=== PATIENT | female | born 1940 | race Caucasian/White ===

== ENCOUNTER 2019-07-03 17:08 | Inpatient (IN) | payer MEDICARE ==
[~2019-07-03] VITALS: Ht 167.6 cm; Wt 97.2 kg
[2019-07-03 17:08] VITALS: BP 180/125
[~2019-07-03 17:08] MED LIST: AZO URINARY P97.5 MG PO; CIPRO500 MG PO; CIPROFLOXACIN500 MG PO; XANAX0.5 MG PO; ZOFRAN4 MG PO
[2019-07-03 17:17] VITALS: BP 170/92
--- NOTE | 2019-07-03 18:15 | NUR ---
Pt to xray at this time.
[2019-07-03 18:36] VITALS: BP 164/90
--- NOTE | 2019-07-03 18:39 | NUR ---
[facility] TO TRANSPORT PATIENT. ETA UNKNOWN
--- NOTE | 2019-07-03 18:54 | NUR ---
Pt states pain is 9/10 at this time in right hip and pt medicated for pain at this time.
--- NOTE | 2019-07-03 19:12 | NUR ---
Report to Herrera nagel
[2019-07-03 20:00] VITALS: BP 157/83
--- NOTE | 2019-07-03 20:53 | NUR ---
PATIENT IS UNABLE TO WALK AT THIS TIME. THE PATIENT STILL STATES THAT SHE IS IN MODERATE PAIN. PATIENT WITH NO OTHER COMPLAINTS.
[2019-07-03 22:00] VITALS: BP 140/76
[2019-07-04] VITALS: BP 145/90; BP 174/81
--- NOTE | 2019-07-04 | NUR ---
Time: 0000 A 79 year old FEMALE admitted to 5E under services of CHER LUEVANO MD. Pt. arrived via stretcher from ER. Chief complaint: CAME IN AFTER FALLING AT HOME. HEBERT GARZA
[2019-07-04] MEDS ORDERED: ENALAPRIL10 MG PO (00:14)
[2019-07-04] MEDS ORDERED: MULTI-VITAMIN1 EACH PO (00:18)
--- NOTE | 2019-07-04 00:45 | NUR ---
DR TAM CALLED . ADMISSION ORDERS RECEIVED.
--- NOTE | 2019-07-04 03:59 | NUR ---
NORCO GIVEN PER PRN ORDER FOR C/O BACK PAIN. RATED PAIN A 9/10 WITH 10 BEING THE WORST. SEE EMAR.REINFORCED USE OF CALL LIGHT.
[2019-07-04 04:00] VITALS: BP 174/81
--- NOTE | 2019-07-04 05:56 | NUR ---
PATIENT REFUSING PO PROTONIX . STATED LAST TIME SHE TOOK IT IT MADE HER VERY SICK.
[2019-07-04 06:14] LABS: BASO # 0.1 10*3/uL (0.0-0.1); BASO % 0.9 % (0.0-1.0); EOS # 0.1 10*3/uL (0.0-0.4); EOS % 1.1 % (1.0-4.0); HEMATOCRIT 41.9 % (37.0-47.0); HEMOGLOBIN 13.5 g/dl (12.0-16.0); LYMPH # 1.3 10*3/uL (1.3-4.4); MEAN CELL VOLUME 89.5 fl (81.0-99.0); MEAN CORPUSCULAR HGB 28.8 pg (27.0-31.0); MEAN CORPUSCULAR HGB CONC 32.2 g/dl (33.0-37.0); MEAN PLATELET VOLUME 9.9 fl (9.6-12.3); MONO # 0.9 10*3/uL (0.1-1.0); MONO % 13.4 % (3.0-9.0); NEUT # 4.6 10*3/uL (2.3-7.9); NEUT % 65.5 % (47.0-73.0); PLATELET COUNT AUTOMATED 158 10*3/uL (130-400); RED BLOOD COUNT 4.68 10*6/uL (4.10-5.10); RED CELL DISTRI WIDTH 13.8 % (0-14.5)
[2019-07-04 06:31] LABS: CREATININE 1.53 mg/dL (0.55-1.02); POTASSIUM 3.9 mmol/L (3.5-5.1)
[2019-07-04 08:00] VITALS: BP 113/81
--- NOTE | 2019-07-04 08:47 | NUR ---
Wool Shearer in to see patient. She is currently not in her room. Will follow up at a later time.
--- NOTE | 2019-07-04 09:36 | NUR ---
MEDICATED WITH PRN PO PERCOCET FOR BACK PAIN, ALSO STARTED SCHEDULED ROBAXIN AT THIS TIME, K-PAD AND LIDODERM PATCH TO RIGHT SIDE OF LOWER BACK APPLIED.
--- NOTE | 2019-07-04 11:09 | NUR ---
PRN PO PERCOCET SOMEWHAT EFFECTIVE IF LYING STILL, PER PATIENT.
--- NOTE | 2019-07-04 11:18 | NUR ---
Rfid Strategist in to talk to patient. Patient states lives at home alone with her family checking in on her. There are 0 steps in the home. Physician: Dr. Edmar Patten Pharmacy: [facility] Home health services: [facility] if needed Patient's level of ADLs: INDEPENDENT Patient has working utilities: yes DME: none Follow-up physician's appointment after d/c: she prefers to make her own follow up appt after discharge Does patient want to access PORTAL?: no Discharge plan discussed with patient. She lives at home alone with family checking in on her. She is normally independent in her ADLs and ambulation. She states that lady doctor came in this morning and told me my back is fractured. Discussed short term rehab and the facilities in the [place] area as she lives in [place]. She would like to think about it. She states she really just wants to go home. Discussed home health care services and she is agreeable. When provided with a list of agencies she chose [facility]. Discussed she can decide better after she works with therapy to see how she is mobile she is going to be and she agreed. Discharge plan undecided at this time. She states her son can provide transportation on discharge. ANGEL LUIS KENYON
[2019-07-04 12:00] VITALS: BP 174/81
--- NOTE | 2019-07-04 15:55 | NUR ---
MEDICATED WITH PRN PO PERCOCET FOR C/O BACK PAIN.
[2019-07-04 16:00] VITALS: BP 146/80
--- NOTE | 2019-07-04 18:11 | NUR ---
PATIENT CALLING OUT FOR HELP, HAVING SOME CONFUSION ABOUT HER FAMILY NOT BEING HERE. HER SON AND GRANDSON LEFT 1-2 HOURS AGO, PATIENT HAS NOT BEEN SLEEPING, BUT SHE STATES THEY WERE JUST HERE AND SHOULD STILL BE HERE.
--- NOTE | 2019-07-04 18:44 | NUR ---
PATIENT TURNED SIDE TO SIDE FOR INCONTINENCE CARE, STATES HAVING LESS PAIN THAN WHEN SHE TRIED TO TURN EARLIER.
--- NOTE | 2019-07-04 20:39 | NUR ---
PT CURRENTLY LYING IN BED AT THIS TIME ON BACK. STATES THAT PAIN HAS IMPROVED THROUGHOUT THE DAY BUT DOES NOT WANT REPOSITIONED AT THIS TIME. PT AGREEABLE TO ALLOWING CORRECT BODY ALIGNMENT AT THIS TIME PT'S LEGS WERE HANGING OVER EDGE OF BED. 0 DISTRESS NOTED. CALL LIGHT WITHIN REACH.
[2019-07-05] VITALS: BP 131/61
[2019-07-05 06:46] LABS: BASO # 0.1 10*3/uL (0.0-0.1); BASO % 0.7 % (0.0-1.0); EOS # 0.1 10*3/uL (0.0-0.4); EOS % 1.5 % (1.0-4.0); HEMATOCRIT 44.1 % (37.0-47.0); HEMOGLOBIN 13.8 g/dl (12.0-16.0); LYMPH # 1.6 10*3/uL (1.3-4.4); LYMPH % 19.5 % (27.0-41.0); MEAN CELL VOLUME 90.6 fl (81.0-99.0); MEAN CORPUSCULAR HGB 28.3 pg (27.0-31.0); MEAN CORPUSCULAR HGB CONC 31.3 g/dl (33.0-37.0); MEAN PLATELET VOLUME 9.9 fl (9.6-12.3); MONO # 0.9 10*3/uL (0.1-1.0); MONO % 11.4 % (3.0-9.0); NEUT # 5.3 10*3/uL (2.3-7.9); NEUT % 66.7 % (47.0-73.0); PLATELET COUNT AUTOMATED 152 10*3/uL (130-400); RED BLOOD COUNT 4.87 10*6/uL (4.10-5.10); RED CELL DISTRI WIDTH 13.7 % (0-14.5)
[2019-07-05 06:56] LABS: CREATININE 1.55 mg/dL (0.55-1.02); POTASSIUM 4.1 mmol/L (3.5-5.1)
[2019-07-05 08:00] VITALS: BP 156/95
--- NOTE | 2019-07-05 09:01 | NUR ---
MEDICATED WITH PRN PO NORCO FOR BACK PAIN AT THIS TIME. K PAD AND LIDODERM PATCH IN PLACE TO RIGHT SIDE OF LOWER BACK.
--- NOTE | 2019-07-05 09:11 | NUR ---
DR. NOLASCO NOTIFIED OF CONSULT, OBTAINED ORDERS FOR URINALYSIS, URINE LYTES AND CREATININE, MAY STRAIGHT CATHETERIZE TO OBTAIN THE SAMPLE.
--- NOTE | 2019-07-05 09:30 | NUR ---
PHYSICAL THERAPY PT EVAL COMPLETED TODAY ON LEVEL 5: FULL EVAL TO FOLLOW. RECOMMEND PT WHILE HERE TO ADDRESS PAIN ,DECREASED FUNCTIONAL MOBILITY,DECREASED STRENGTH AND BALANCE. PT EVAL IS MODERATE COMPLEXITY: [id number]. D/C RECOMMENDATIONS BASED ONEVAL ARE SHORT TERM SNF VS HOME HEALTH DEPENDING ON HOW SHE PROGRESSES WHILE HERE AND PAIN LEVELS.THANK YOU FOR REFERRAL ELISEO OLIVEROS PT
--- NOTE | 2019-07-05 10:16 | NUR ---
PRN PO NORCO EFFECTIVE, PATIENT REPORTS LESS PAIN.
[2019-07-05 10:22] LABS: URINE CREATININE RANDOM 65.8 mg/dL
[2019-07-05 10:42] LABS: BILIRUBIN NEGATIVE (NEGATIVE); BLOOD NEGATIVE (NEGATIVE); CLARITY CLEAR (CLEAR); COLOR YELLOW (YELLOW); GLUCOSE NEGATIVE (NEGATIVE); KETONE NEGATIVE (NEGATIVE); LEUKO ESTERASE NEGATIVE (NEGATIVE); NITRITE NEGATIVE (NEGATIVE); SPECIFIC GRAVITY 1.015 (1.005-1.030); UROBILINOGEN 0.2 E.U./dl (0.2-1.0)
[2019-07-05 10:52] LABS: BACTERIA 1+; MUCOUS 1+
--- NOTE | 2019-07-05 15:12 | NUR ---
MEDICATED WITH PRN PO NORCO FOR BACK PAIN, CONTINUES TO HAVE MUSCLE SPASMS TO THE LOWER BACK AND SIDES AREAS.
--- NOTE | 2019-07-05 15:39 | NUR ---
POX 87% ON ROOM AIR, NO DISTRESS NOTED, APPLIED O2 2L NC FOR POX UP TO 92%
[2019-07-05 16:00] VITALS: BP 148/66
--- NOTE | 2019-07-05 19:31 | NUR ---
24 HR chart check completed.
--- NOTE | 2019-07-05 19:53 | NUR ---
IN TO ASSESS PATIENT. PATIENT PLEASANT AND ORIENTED, BUT FORGETFUL. STATES SHE FORGOT SHE WAS IN THE HOSPITAL, BUT THAT HER MEDICINE IS HELPING HER BACK A LOT. STATES SHE FEELS GOOD RIGHT NOW. IV FLUIDS INFUSING. STATED SHE WILL ASK FOR HER MEDICATION WHEN SHE NEEDS IT, BUT RIGHT NOW SHE IS OK. CALL LIGHT WITHIN REACH, WILL MONITOR
[2019-07-05 20:00] VITALS: BP 143/59
--- NOTE | 2019-07-05 21:42 | NUR ---
PRN NORCO GIVEN FOR PT COMPLAINTS OF BACK PAIN RATING IT 10. CALL LIGHT WITHIN REACH, WILL MONITOR
--- NOTE | 2019-07-05 23:21 | NUR ---
PATIENT REPEATEDLY TAKING OXYGEN OFF. STATES SHE DOESN'T HAVE A HARD TIME BREATHING AND DOESN'T NEED IT. EXPLAINED TO THE PATIENT THAT RIGHT NOW SHE ISN'T TAKING DEEP BREATH BECAUSE OF THE PAIN, PAIN MEDICATION CAN LOWER A PULSE OX, AND LAYING FLAT CAN ALSO CAUSE IT TO GO DOWN. PATIENT VERBALIZED UNDERSTANDING AND ALLOWED OXYGEN TO BE REAPPLIED. ROBAXIN ADMINISTERED WITHOUT ISSUE. PATIENT STATED SHE KEEPS FORGETTING THE SHE'S IN THE HOSPITAL AND CONTINUALLY ASKS WHO SHE KEEPS HEARING OUTSIDE. PATIENT REORIENTED. CALL LIGHT WITHIN REACH, WILL MONITOR
[2019-07-06] VITALS: BP 141/73
--- NOTE | 2019-07-06 01:24 | NUR ---
PATIENT LAYING IN BED. DENIES ANY NEEDS. STATES SHE FEELS PRETTY GOOD AT THIS TIME. DENIES ANY PAIN. CALL LIGHT WITHIN REACH, WILL MONITOR
--- NOTE | 2019-07-06 03:50 | NUR ---
PATIENT LAYING IN BED. REMINDED HER OF IMPORTANCE OF WEARING OXYGEN. SHE STATED SHE FORGOT SHE TOOK IT OFF AND PUT IT BACK ON. ASKED PATIENT IF SHE WAS IN PAIN, SHE STATED "YES ITS BAD". ASKED PATIENT IF SHE WOULD LIKE TO HAVE A PAIN PILL. PATIENT STATED THAT SHE WAS GETTING A PROCEDURE DONE AND SHE DIDN'T KNOW WHAT SHE COULD AND COULDN'T TAKE SO SHE DIDN'T WANT ONE RIGHT NOW. EXPLAINED TO PATIENT THAT SHE WAS GETTING AN MRI DONE OF HER BACK THIS MORNING AND THAT SHE CAN STILL HAVE A PAIN PILL IF SHE NEEDED IT. PATIENT CONTINUED TO REFUSED AND BEGAN GETTING AGITATED WITH THIS NURSE. CALL LIGHT WITHIN REACH, WILL MONITOR
--- NOTE | 2019-07-06 05:13 | NUR ---
PRN NORCO GIVEN FOR PT COMPLAINTS OF PAIN IN THE BACK RATING IT 10/10. CALL LIGHT WITHIN REACH, WILL MONITOR
--- NOTE | 2019-07-06 07:11 | NUR ---
CHEO POTTER Arline [id number] Please refer to the physician's history and physical for past medical history, comorbid conditions, and allergies. Diagnosis: AMBULATORY DYSFUNCTION FALL AT HOME Brent Score: 15,AT RISK WOUND DESCRIPTIONS: PATIENT HAS INTACT SCABS NOTED TO BILATERAL KNEES. NO DRAINAGE, ERYTHEMA NOTED AT TIME OF ASSESSMENT. PATIENT DENIED PAIN AT TIME OF ASSESSMENT. PATIENT STATES THAT SHE FELL AT HOME AND DIDN'T KNOW SHE HAD THESE AREAS. Surface the patient is resting on: Isoflex SKIN PREVENTION RECOMMENDATION: 1. Pressure redistribution support surface as appropriate 2. Elevate heels 3. Remove boots/TEDS every shift and reapply 4. Head of bed 30 degrees as tolerated 5. Assess nutrition and hydration 6. Manage moisture 7. Avoid the use of containment devices while in bed 8. Use absorptive products on surfaces limit layers of linens on bed 9. Turn and reposition every 1-2 hours in bed and every 1 hour in chair as tolerated 10. Weight shifts every 15 minutes while up in chair 11. Offloading with pillows or device to keep heels elevated off bed 12. Monitor skin at least every shift 13. Inspect under medical devices twice a day WOUND TREATMENT RECOMMENDATIONS: LEAVE BILATERAL KNEES OPEN TO AIR.
[2019-07-06 08:00] VITALS: BP 154/71
--- NOTE | 2019-07-06 08:40 | NUR ---
PT TAKEN OFF FLOOR FOR MRI AT THIS TIME.
--- NOTE | 2019-07-06 09:00 | NUR ---
Nanofabrication Specialist in to see patient. She is currently not in her room. Will follow up at a later time.
--- NOTE | 2019-07-06 09:30 | NUR ---
PHYSICAL THERAPY Patient was out of room this am for MRI when approached for therapy and not available at this time. Will continue per POC as able. Meng Sanchez, DEBRIDGING MACHINE OPERATOR
--- NOTE | 2019-07-06 09:50 | NUR ---
IN TO SEE PATIENT.
--- NOTE | 2019-07-06 10:00 | NUR ---
Occupational therapy orders and nursing screen received. Will follow up with the patient for completion of the OT evaluation. Thank you. Bailee Kimble, OTR/L
--- NOTE | 2019-07-06 11:00 | NUR ---
PATIENT MEDICATED WITH NORCO AT THIS TIME FOR 8/10 PAIN IN LOWER BACK WITH ANY MOVEMENT. WILL MONITOR FOR EFFECTIVENESS.
--- NOTE | 2019-07-06 11:45 | NUR ---
Quality System Manager in to see patient. No new needs or request at this time. Discussed short term SNF and she is unsure at this time. Discharge plan undecided at this time. She asked CM if Cm was talking to her daughter. She states she hears her voice. Will reach out to daughter.
[2019-07-06 12:00] VITALS: BP 160/58
--- NOTE | 2019-07-06 12:41 | NUR ---
Attempted to reach daughter, Mellisa, with no success regarding discharge planning. Left voicemail. Awaiting return call.
--- NOTE | 2019-07-06 13:05 | NUR ---
PHYSICAL THERAPY Per discussion with Nursing and Supervising Therapist, patient to be on hold for treatment pending results of MRI this pm. Will continue per POC as appropriate. Meng Sanchez, RADAR MECHANIC
--- NOTE | 2019-07-06 13:06 | NUR ---
DALLAS met with patient during BSV. Patient appeared to be slightly confused and expressed she was worried becuase she did not want to become bed ridden. Patient expressed that her daughter would be the best person to talk to. DALLAS will follow up with window caser and daughter.
--- NOTE | 2019-07-06 13:09 | NUR ---
Spoke to daughter, Mellisa, regarding discharge planning. Discussed short term SNF and she is agreeable. When provided with a list of facilities she chose [facility]. She states her mom called her this morning and said the hospital put her in the basement. bridge ironworker helper notified.
--- NOTE | 2019-07-06 13:28 | NUR ---
AND DRYING SUPERVISOR COOKING CASING faxed referral to [facility] for SNF days on this date. AND DRYING SUPERVISOR COOKING CASING will continue to follow and address needs as they arise.
--- NOTE | 2019-07-06 13:45 | NUR ---
Occupational therapy orders received and chart reviewed. Patient's MRI results are pending at this time. Will follow up following results. Thank you. Bailee Kimble OTR/L
[2019-07-06 16:00] VITALS: BP 141/73
[2019-07-06 20:00] VITALS: BP 184/79
--- NOTE | 2019-07-06 20:49 | NUR ---
24 HR chart check completed.
--- NOTE | 2019-07-06 22:00 | NUR ---
AWAKE BUT DROWSY. RESPIRATIONS EASY. LUNGS DIMINISHED, CLEAR. PULSE OX 93% RA. NON-PROD COUGH NOTED. CALL LIGHT WITHIN REACH. NO VOICED COMPLAINTS. BED ALARM MAINTAINED FOR SAFETY
[2019-07-07] VITALS (21 sets, daily range): BP systolic 119–175; BP diastolic 61–102
--- NOTE | 2019-07-07 00:30 | NUR ---
SLEEPING. NO DISTRESS NOTED. RESPIRATIONS EASY. VSS. CALL LIGHT WITHIN REACH
--- NOTE | 2019-07-07 03:00 | NUR ---
SLEEPING. BED ALARM MAINTAINED
--- NOTE | 2019-07-07 04:08 | NUR ---
Upon discharge recommend patient to follow up for wound care in outpatient setting continue current wound care orders at discharging facility.
--- NOTE | 2019-07-07 06:00 | NUR ---
UNCOOPERATIVE. DISORIENTED TO TIME AND PLACE. ATTEMPTED TO REORIENT WITH LITTLE SUCCESS. REFUSING PO MEDS. IV PULLED OUT, REFUSING RESTICK. UNCOOPERATIVE WITH ALL CARE AT THIS TIME. CALL LIGHT WITHIN REACH. BED ALARM MAINTAINED FOR SAFETY
[2019-07-07 06:36] LABS: ACT PARTIAL THROMBO TIME 26.2 SECONDS (20.0-32.1)
--- NOTE | 2019-07-07 08:04 | NUR ---
PHYSICAL THERAPY Screen and PT eval received pt has been evaluated and is on caseload thank you Yoli Stapleton PT
--- NOTE | 2019-07-07 09:00 | NUR ---
Prevention Coordinator in to see patient. No new needs or request at this time. When medically stable and accepted she will be discharged to [facility]. Notified Dr. Bunn of referral to [facility].
--- NOTE | 2019-07-07 09:30 | NUR ---
PATIENT TAKEN OFF FLOOR FOR SURGERY.
--- NOTE | 2019-07-07 10:00 | NUR ---
Occupational therapy orders received and chart reviewed. Patient was out of the room at surgery upon arrival. Will follow up with the patient when available. Thank you. Bailee Kimble OTR/L
--- NOTE | 2019-07-07 11:00 | NUR ---
PT BACK FROM SURGERY AT THIS TIME; NOTIFIED PATIENT/FAMILY OF BED REST X 2 HOURS. PT COMFORTABLE AT THIS TIME AND DENIES NEEDS. VITALS STABLE. CALL LIGHT WITHIN REACH.
--- NOTE | 2019-07-07 11:03 | NUR ---
PHYSICAL THERAPY PATIENT IS IN SURGERY AT THIS TIME. RERE TODD SPECIMEN TECHNICIAN
--- NOTE | 2019-07-07 12:00 | NUR ---
BP 164/80; PATIENT GIVEN PO NORVASC (HOME MED); WILL RECHECK.
--- NOTE | 2019-07-07 15:20 | NUR ---
PHYSICAL THERAPY This LINING FELLER BLINDSTITCH checked back with patient this afternoon at 3:21 PM AND THE PATIENT'S DAUGHTER said that the," surgery did not take" and the doctor was suppossed to come in to see the patient to discuss the surgery. The patient did not seem to know the facts surounding her surgery, so this LINING FELLER BLINDSTITCH went to talk to ZULEMA JETER who was at that time, busy with a patient in another room. Will check back with patient at another time/date. RERE TODD LINING FELLER BLINDSTITCH
--- NOTE | 2019-07-07 20:15 | NUR ---
24 HR chart check completed.
--- NOTE | 2019-07-07 21:00 | NUR ---
RESTING WITH EYES CLOSED AND NO ACUTE DISTRESS NOTED. RESPIRATIONS EASY. LUNGS DIMINISHED, CLEAR. PULSE OX 93% RA. CALL LIGHT WITHIN REACH. NO VOICED COMPLAINTS. BED ALARM MAINTAINED FOR SAFETY
[2019-07-08] VITALS: BP 171/89
--- NOTE | 2019-07-08 | NUR ---
SLEEPING. NO DISTRESS NOTED. RESPIRATIONS EASY. VSS. CALL LIGHT WITHIN REACH
--- NOTE | 2019-07-08 03:00 | NUR ---
CONTINUES TO SLEEP
--- NOTE | 2019-07-08 06:00 | NUR ---
SLEPT THROUGHOUT NIGHT WITH NO ACUTE DISTRESS NOTED. RESPIRATIONS EASY. CALL LIGHT WITHIN REACH. NO VOICED COMPLAINTS THIS SHIFT
[2019-07-08 08:00] VITALS: BP 146/71
--- NOTE | 2019-07-08 08:30 | NUR ---
IN TO SEE PATIENT.
--- NOTE | 2019-07-08 08:40 | NUR ---
Landscape Manager in to see patient. Discussed whether she wanted to go to [facility] for rehab and she is unsure. Discussed other facilities locally [place] [facility] [place] [facility], or [facility] in [place], or [facility] in [place]. She refuses to go to [facility]. She states "to make it convenient for everyone I will go to [facility]." Dr. Bunn notified.
[2019-07-08] MEDS ORDERED: METHOCARBAMOL750 M1 PO (08:41)
[2019-07-08] MEDS ORDERED: AMLODIPINE BESYL5 MG PO ×2 (08:41→08:43)
[2019-07-08] MEDS ORDERED: HYDROCODONE-AC1 EAC1 PO (08:41)
[2019-07-08] MEDS ORDERED: Lidoderm 5% Patch T (08:43)
--- NOTE | 2019-07-08 09:00 | NUR ---
Occupational Therapy evaluation completed on five with full evaluation to follow. Recommend occupational therapy per plan of care and SNF upon discharge. Thank you for this referral. Bailee Kimble OTR/L
--- NOTE | 2019-07-08 09:10 | NUR ---
patient hospital exemption complete for [facility], 3 night stay complete, patient is ok to go if medically stable for discharge.
--- NOTE | 2019-07-08 09:13 | NUR ---
D[place]AS spoke with floor nurse about discharge for patient. Patient will in fact need ambulance transport. SECURITY PUBLIC SAFETY OFFICER will make all arrangments needed for discharge.
--- NOTE | 2019-07-08 09:40 | NUR ---
PHYSICAL THERAPY Patient seen this am 1;1 for therapy visit and was supine in bed upon therapist arrival. Patient identified by name / and reports 5/10 low back pain. OT nurse assistant was present for observation only this session as patient educated on safe "log roll" technique while transfering supine to sit EOB with MAX A. Patient was very guarded and needed v/c for relaxtion breathing technique, tolerating 3-4 minutes static EOB sit with "slouched" posture. Patient needed v/c to sit up straight and performed sit to stand transfer MOD A x 2, tolerating < 30 seconds static stand, then able to side step to L 2-3 steps for pre bed positioning. Patient reported increased 10/[address] Guzman arrived. Physician stated that he did not have any standing activity precautions or restrictions, however did state Dr Bunn could order if needed. Patient returned to supine in bed MAX A and remained with call light, tray table, telephone and bed alarm for safety. Will continue per POC as tolerated, total treatment time 14 minutes. Meng Sanchez, SYNTHETIC GEM PRESS OPERATOR
--- NOTE | 2019-07-08 10:06 | NUR ---
NORCO GIVEN PER PRN ORDER FOR C/O BACK PAIN. RATES PAIN /10. WILL MONITOR EFFECTIVENESS.
--- NOTE | 2019-07-08 11:40 | NUR ---
SHOP FOREMAN setup discharge and transfer to [facility]. Unit notifed, [place] setup, updated information sent to [facility]. Patient to discharge at 1300.
--- NOTE | 2019-07-08 11:59 | NUR ---
Discharge instructions reviewed with patient/family. Patient receptive and verbalizes understanding. Follow-up care arranged. Written instructions given to patient/family. JENNIFER HUFFMAN.
--- NOTE | 2019-07-08 13:22 | NUR ---
REPORT GIVEN TO NURSE AT [facility].
--- NOTE | 2019-07-10 07:11 | NUR ---
PHYSICAL THERAPY CO-SIGN I approve of the Physical Therapy notes written above. Yoli Stapleton PT
== END 2019-07-08 13:22 | disposition other institution (70) | DRG 515 ==
LOC: ED 17:08 → 5E 22:56 → EDHOLD 22:56 → 5E 23:17
PROVIDERS: Internal Medicine Nephrology; ADMIT Internal Medicine
PROC: 0QU03JZ Supplement Lumbar Vertebra with Synthetic Substitute, Percutaneous Approach (ICD-10-PCS; principal; 2019-07-07)
DX: S32.039A Unspecified fracture of third lumbar vertebra, initial encounter for closed fracture (principal); J96.00 Acute respiratory failure, unspecified whether with hypoxia or hypercapnia; J98.11 Atelectasis; Z68.34 Body mass index [BMI] 34.0-34.9, adult; F41.9 Anxiety disorder, unspecified; F32.9 Major depressive disorder, single episode, unspecified; E66.9 Obesity, unspecified; I12.9 Hypertensive chronic kidney disease with stage 1 through stage 4 chronic kidney disease, or unspecified chronic kidney disease; N18.3 Chronic kidney disease, stage 3 (moderate); W18.30XA Fall on same level, unspecified, initial encounter; M16.11 Unilateral primary osteoarthritis, right hip; J43.9 Emphysema, unspecified; G47.30 Sleep apnea, unspecified; R62.7 Adult failure to thrive; R26.2 Difficulty in walking, not elsewhere classified; N14.1 Nephropathy induced by other drugs, medicaments and biological substances; T39.395A Adverse effect of other nonsteroidal anti-inflammatory drugs [NSAID], initial encounter; T39.8X5A Adverse effect of other nonopioid analgesics and antipyretics, not elsewhere classified, initial encounter; Y92.238 Other place in hospital as the place of occurrence of the external cause; Y93.89 Activity, other specified; Y99.8 Other external cause status; Z87.440 Personal history of urinary (tract) infections; Z88.5 Allergy status to narcotic agent; Z90.710 Acquired absence of both cervix and uterus; Z82.0 Family history of epilepsy and other diseases of the nervous system; Z80.1 Family history of malignant neoplasm of trachea, bronchus and lung; Y92.092 Bedroom in other non-institutional residence as the place of occurrence of the external cause

== ENCOUNTER → 2020-04-21 | Outpatient (CLI) | payer MEDICARE, OTHER ==
[~2020-04-21] MED LIST changes: +AMLODIPINE BESYL5 MG PO; +ENALAPRIL10 MG PO; +HYDROCODONE-AC1 EAC1 PO; +Lidoderm 5% Patch T; +METHOCARBAMOL750 M1 PO; +MULTI-VITAMIN1 EACH PO
== END | disposition home or self-care (01) ==
LOC: COVID19 10:56
PROVIDERS: ATTEND Family Medicine
DX: Z20.828 Contact with and (suspected) exposure to other viral communicable diseases (principal)

== ENCOUNTER → 2020-06-03 | Outpatient (CLI) | payer MEDICARE, OTHER | END | disposition home or self-care (01) | LOC: US 14:26 | PROVIDERS: ATTEND Family Medicine | DX: R60.0 Localized edema (principal) ==

== ENCOUNTER → 2020-06-10 | Outpatient (CLI) | payer MEDICARE, OTHER | END | disposition home or self-care (01) | LOC: LAB 13:06 | PROVIDERS: ATTEND Family Medicine | DX: Z79.01 Long term (current) use of anticoagulants (principal) ==

== ENCOUNTER → 2020-06-19 | Outpatient (CLI) | payer MEDICARE, OTHER | END | disposition home or self-care (01) | LOC: LAB 09:53 | PROVIDERS: ATTEND Family Medicine | DX: Z79.01 Long term (current) use of anticoagulants (principal) ==

== ENCOUNTER → 2020-07-15 | Outpatient (CLI) | payer MEDICARE, OTHER ==
[2020-07-15 12:05] LABS: INTERNATIONAL NORM RATIO 1.1 (2.0-3.5)
== END | disposition home or self-care (01) ==
LOC: LAB 11:11
PROVIDERS: ATTEND Family Medicine
DX: I48.91 Unspecified atrial fibrillation (principal); Z79.899 Other long term (current) drug therapy

== ENCOUNTER → 2020-07-24 | Outpatient (CLI) | payer MEDICARE, OTHER ==
[2020-07-24 13:25] LABS: INTERNATIONAL NORM RATIO 1.4 (2.0-3.5)
== END | disposition home or self-care (01) ==
LOC: LAB 12:56
PROVIDERS: ATTEND Family Medicine
DX: I48.91 Unspecified atrial fibrillation (principal); Z79.01 Long term (current) use of anticoagulants

== ENCOUNTER → 2020-08-17 | Outpatient (CLI) | payer MEDICARE, OTHER | END | disposition home or self-care (01) | LOC: LAB 17:17 | PROVIDERS: ATTEND Family Medicine | DX: I48.91 Unspecified atrial fibrillation (principal); Z78.0 Asymptomatic menopausal state ==

== ENCOUNTER 2020-11-17 19:54 | Inpatient (IN) | payer MEDICARE, OTHER ==
[~2020-11-17] VITALS: Ht 170.1 cm; Wt 86.7 kg
[2020-11-17 20:03] VITALS: BP 144/76
[2020-11-17 20:40] LABS: BILIRUBIN Negative (Negative); BLOOD Trace-Lysed (Negative); CLARITY Turbid (Clear); COLOR Dark Yellow (Yellow); GLUCOSE Negative (Negative); KETONE Trace (Negative); LEUKO ESTERASE 3+ (Negative); NITRITE Positive (Negative)
[2020-11-17 20:48] LABS: BACTERIA 2+; MUCOUS TRACE; WBC TNTC wbc/hpf (0-5)
[2020-11-17 20:49] LABS: HEMATOCRIT 51.2 % (37.0-47.0); MEAN CELL VOLUME 88.6 fl (81.0-99.0); MEAN CORPUSCULAR HGB 28.5 pg (27.0-31.0); MEAN CORPUSCULAR HGB CONC 32.2 g/dl (33.0-37.0); MEAN PLATELET VOLUME 10.1 fl (9.6-12.3); PLATELET COUNT AUTOMATED 126 10*3/uL (130-400); RED BLOOD COUNT 5.78 10*6/uL (4.10-5.10); RED CELL DISTRI WIDTH 15.1 % (0-14.5); WHITE BLOOD COUNT 8.8 10*3/uL (4.8-10.8)
[2020-11-17 21:06] LABS: ALBUMIN 3.4 gm/dl (3.1-4.5); CREATININE 2.47 mg/dL (0.55-1.02); POTASSIUM 3.9 mmol/L (3.5-5.1)
[2020-11-17 21:14] LABS: ATYPICAL LYMPHS 1 % (0-0); PLATELET SUFFICIENCY LOW (NORMAL); TOTAL CELLS COUNTED 100 #CELLS
[2020-11-17 21:15] LABS: VACUOLATION OF NEUTROPHILS SLIGHT
[2020-11-17 21:20] VITALS: BP 146/70
[2020-11-17 22:46] VITALS: BP 115/70
[2020-11-18] VITALS (10 sets, daily range): BP systolic 114–146; BP diastolic 55–74
[2020-11-18] MEDS ORDERED: ELIQUIS2.5 M1 PO (06:22)
[2020-11-18] MEDS ORDERED: RIVASTIGMINE T4.5 M1 PO (06:26)
[2020-11-18] MEDS ORDERED: OMEPRAZOLE40 MG PO (06:28)
[2020-11-18] MEDS ORDERED: HYDROCHLOROTHIA25 M1 PO ×2 (06:29→13:02)
[2020-11-18] MEDS ORDERED: OXYBUTYNIN10 MG PO (06:29)
[2020-11-18] MEDS ORDERED: NAMENDA10 MG PO (06:31)
[2020-11-18] MEDS ORDERED: HYDROXYZINE PAM25 M1 PO (06:32)
[2020-11-18] MEDS ORDERED: ENALAPRIL20 MG PO (06:33)
[2020-11-18] MEDS ORDERED: APRESOLINE25 MG PO (06:35)
[2020-11-18] MEDS ORDERED: ACETAMINOPHEN650 M5 PO (06:35)
[2020-11-18] MEDS ORDERED: CYCLOBENZAPRINE5 M3 PO ×2 (06:36→13:04)
[2020-11-18 07:31] LABS: HEMATOCRIT 49.9 % (37.0-47.0); MEAN CELL VOLUME 91.2 fl (81.0-99.0); MEAN CORPUSCULAR HGB 28.7 pg (27.0-31.0); MEAN CORPUSCULAR HGB CONC 31.5 g/dl (33.0-37.0); MEAN PLATELET VOLUME 10.7 fl (9.6-12.3); PLATELET COUNT AUTOMATED 99 10*3/uL (130-400); RED BLOOD COUNT 5.47 10*6/uL (4.10-5.10); RED CELL DISTRI WIDTH 15.2 % (0-14.5); WHITE BLOOD COUNT 5.3 10*3/uL (4.8-10.8)
[2020-11-18 07:35] LABS: CREATININE 2.29 mg/dL (0.55-1.02); POTASSIUM 3.9 mmol/L (3.5-5.1)
[2020-11-18 07:58] LABS: PLATELET SUFFICIENCY LOW (NORMAL); TOTAL CELLS COUNTED 100 #CELLS
[2020-11-19] VITALS (7 sets, daily range): BP systolic 103–144; BP diastolic 56–76
[2020-11-19 06:30] LABS: HEMATOCRIT 51.5 % (37.0-47.0); MEAN CELL VOLUME 92.5 fl (81.0-99.0); MEAN CORPUSCULAR HGB 28.9 pg (27.0-31.0); MEAN CORPUSCULAR HGB CONC 31.3 g/dl (33.0-37.0); MEAN PLATELET VOLUME 11.4 fl (9.6-12.3); RED BLOOD COUNT 5.57 10*6/uL (4.10-5.10); RED CELL DISTRI WIDTH 15.4 % (0-14.5); WHITE BLOOD COUNT 4.9 10*3/uL (4.8-10.8)
[2020-11-19 06:38] LABS: PLATELET COUNT AUTOMATED 81 10*3/uL (130-400)
[2020-11-19 06:51] LABS: ALBUMIN 2.9 gm/dl (3.1-4.5); CREATININE 2.11 mg/dL (0.55-1.02); POTASSIUM 3.7 mmol/L (3.5-5.1); TOTAL PROTEIN 7.1 gm/dL (6.4-8.2)
[2020-11-19 06:59] LABS: BASOPHILS 1 % (0-1); BURR CELLS FEW; PLATELET SUFFICIENCY LOW (NORMAL); TOTAL CELLS COUNTED 100 #CELLS
[2020-11-20] VITALS: BP 124/50
[2020-11-20 07:45] VITALS: BP 138/68
[2020-11-20 12:00] VITALS: BP 105/58
[2020-11-20 16:00] VITALS: BP 110/63
[2020-11-20 20:28] VITALS: BP 142/77
[2020-11-20 20:57] LABS: ABG BASE EXCESS -4.4 mmol/L (-2.0-2.0); ARTERIAL BLOOD GAS PH 7.44 (7.35-7.45); ARTERIAL BLOOD GAS PO2 91.1 (80-90)
[2020-11-20 22:28] LABS: ALBUMIN 2.5 gm/dl (3.1-4.5); CREATININE 1.59 mg/dL (0.55-1.02); TOTAL PROTEIN 6.8 gm/dL (6.4-8.2)
[2020-11-20 23:39] LABS: HEMATOCRIT 41.5 % (37.0-47.0); MEAN CORPUSCULAR HGB 29.2 pg (27.0-31.0); MEAN CORPUSCULAR HGB CONC 33.3 g/dl (33.0-37.0); MEAN PLATELET VOLUME 11.8 fl (9.6-12.3); PLATELET COUNT AUTOMATED 88 10*3/uL (130-400); RED BLOOD COUNT 4.72 10*6/uL (4.10-5.10); RED CELL DISTRI WIDTH 15.2 % (0-14.5); WHITE BLOOD COUNT 9.7 10*3/uL (4.8-10.8)
[2020-11-20 23:48] LABS: MEAN CELL VOLUME 87.9 fl (81.0-99.0)
[2020-11-20 23:58] LABS: ATYPICAL LYMPHS 2 % (0-0); PLATELET SUFFICIENCY LOW (NORMAL); TOTAL CELLS COUNTED 100 #CELLS
[2020-11-20 23:59] LABS: BURR CELLS FEW
[2020-11-21] VITALS: BP 99/50
[2020-11-21 04:00] VITALS: BP 115/65
[2020-11-21 08:00] VITALS: BP 111/57
[2020-11-21 16:00] VITALS: BP 119/65
[2020-11-21 20:00] VITALS: BP 143/88
[2020-11-22] VITALS: BP 97/47
[2020-11-22 08:00] VITALS: BP 144/66
[2020-11-22 12:00] VITALS: BP 142/60
[2020-11-22 16:00] VITALS: BP 140/86
[2020-11-22 20:00] VITALS: BP 121/51
[2020-11-23] VITALS: BP 114/74
[2020-11-23 05:49] VITALS: BP 111/68
[2020-11-23 06:37] LABS: BASO % 0.3 % (0.0-1.0); EOS # 0.3 10*3/uL (0.0-0.4); EOS % 4.5 % (1.0-4.0); HEMATOCRIT 38.3 % (37.0-47.0); LYMPH # 0.7 10*3/uL (1.3-4.4); LYMPH % 9.6 % (27.0-41.0); MEAN CELL VOLUME 89.9 fl (81.0-99.0); MEAN CORPUSCULAR HGB 28.9 pg (27.0-31.0); MEAN CORPUSCULAR HGB CONC 32.1 g/dl (33.0-37.0); MEAN PLATELET VOLUME 11.6 fl (9.6-12.3); MONO # 0.4 10*3/uL (0.1-1.0); MONO % 5.8 % (3.0-9.0); NEUT % 79.1 % (47.0-73.0); PLATELET COUNT AUTOMATED 141 10*3/uL (130-400); RED BLOOD COUNT 4.26 10*6/uL (4.10-5.10); RED CELL DISTRI WIDTH 15.7 % (0-14.5); WHITE BLOOD COUNT 7.6 10*3/uL (4.8-10.8)
[2020-11-23 06:51] LABS: ALBUMIN 2.1 gm/dl (3.1-4.5); CREATININE 1.47 mg/dL (0.55-1.02); POTASSIUM 3.5 mmol/L (3.5-5.1); TOTAL PROTEIN 5.6 gm/dL (6.4-8.2)
[2020-11-23] MEDS ORDERED: METOPROLOL SUCC50 M1 PO (07:00)
[2020-11-23] MEDS ORDERED: MIRTAZAPINE15 M2 PO (07:00)
[2020-11-23] MEDS ORDERED: LEVOFLOXACIN500 MG PO (07:00)
[2020-11-23 08:00] VITALS: BP 112/61
[2020-11-23 12:00] VITALS: BP 125/60
== END 2020-11-23 14:09 | DRG 871 ==
LOC: ED 19:54 → ICCU 21:30 → EDHOLD 21:30 → 5E 11-18 11:48 → ICCU 11-20 20:33 → 4E 11-22 06:56
PROVIDERS: Internal Medicine; Internal Medicine Critical Care Medicine; Internal Medicine Nephrology; ADMIT Internal Medicine; ATTEND Internal Medicine
PROC: 05HC33Z Insertion of Infusion Device into Left Basilic Vein, Percutaneous Approach (ICD-10-PCS; principal; 2020-11-21)
DX: A41.89 Other specified sepsis (principal); J96.00 Acute respiratory failure, unspecified whether with hypoxia or hypercapnia; N39.0 Urinary tract infection, site not specified; I48.21 Permanent atrial fibrillation; E44.1 Mild protein-calorie malnutrition; N10 Acute pyelonephritis; N17.9 Acute kidney failure, unspecified; R65.20 Severe sepsis without septic shock; D75.1 Secondary polycythemia; B96.20 Unspecified Escherichia coli [E. coli] as the cause of diseases classified elsewhere; B95.2 Enterococcus as the cause of diseases classified elsewhere; E87.8 Other disorders of electrolyte and fluid balance, not elsewhere classified; B96.89 Other specified bacterial agents as the cause of diseases classified elsewhere; G30.9 Alzheimer's disease, unspecified; T39.395A Adverse effect of other nonsteroidal anti-inflammatory drugs [NSAID], initial encounter; F02.80 Dementia in other diseases classified elsewhere, unspecified severity, without behavioral disturbance, psychotic disturbance, mood disturbance, and anxiety; N18.32 Chronic kidney disease, stage 3b; F32.9 Major depressive disorder, single episode, unspecified; Z20.822 Contact with and (suspected) exposure to COVID-19; R62.7 Adult failure to thrive; I12.9 Hypertensive chronic kidney disease with stage 1 through stage 4 chronic kidney disease, or unspecified chronic kidney disease; Z88.5 Allergy status to narcotic agent; Z79.899 Other long term (current) drug therapy; Z82.0 Family history of epilepsy and other diseases of the nervous system; Z80.1 Family history of malignant neoplasm of trachea, bronchus and lung; Z90.710 Acquired absence of both cervix and uterus; Z79.01 Long term (current) use of anticoagulants; Y92.89 Other specified places as the place of occurrence of the external cause; Z68.29 Body mass index [BMI] 29.0-29.9, adult

== ENCOUNTER 2020-12-25 16:21 | Emergency (ER) | payer MEDICARE, OTHER ==
[~2020-12-25] VITALS: Ht 170.1 cm; Wt 85.8 kg
[~2020-12-25 16:21] MED LIST changes: +ACETAMINOPHEN650 M5 PO; +APRESOLINE25 MG PO; +CYCLOBENZAPRINE5 M3 PO; +ELIQUIS2.5 M1 PO; +ENALAPRIL20 MG PO; +HYDROCHLOROTHIA25 M1 PO; +HYDROXYZINE PAM25 M1 PO; +LEVOFLOXACIN500 MG PO; +METOPROLOL SUCC50 M1 PO; +MIRTAZAPINE15 M2 PO; +NAMENDA10 MG PO; +OMEPRAZOLE40 MG PO; +OXYBUTYNIN10 MG PO; +RIVASTIGMINE T4.5 M1 PO
[2020-12-25 16:59] LABS: BASO # 0.1 10*3/uL (0.0-0.1); EOS # 0.1 10*3/uL (0.0-0.4); EOS % 1.9 % (1.0-4.0); HEMATOCRIT 41.4 % (37.0-47.0); LYMPH # 2.4 10*3/uL (1.3-4.4); LYMPH % 35.2 % (27.0-41.0); MEAN CELL VOLUME 93.7 fl (81.0-99.0); MEAN CORPUSCULAR HGB 29.2 pg (27.0-31.0); MEAN CORPUSCULAR HGB CONC 31.2 g/dl (33.0-37.0); MEAN PLATELET VOLUME 9.3 fl (9.6-12.3); MONO # 0.6 10*3/uL (0.1-1.0); MONO % 9.6 % (3.0-9.0); NEUT # 3.5 10*3/uL (2.3-7.9); NEUT % 51.9 % (47.0-73.0); PLATELET COUNT AUTOMATED 209 10*3/uL (130-400); RED BLOOD COUNT 4.42 10*6/uL (4.10-5.10); RED CELL DISTRI WIDTH 17.2 % (0-14.5); WHITE BLOOD COUNT 6.7 10*3/uL (4.8-10.8)
[2020-12-25 17:19] LABS: ALBUMIN 3.4 gm/dl (3.1-4.5); ALKALINE PHOSPHATASE 60 U/L (45-117); BUN 15 mg/dl (7-24); CHLORIDE 110 mmol/L (98-107); CREATININE 1.61 mg/dL (0.55-1.02); SGOT/AST 24 IU/L (3-35); SGPT/ALT 23 U/L (12-78); SODIUM 142 mmol/L (136-145); TOTAL PROTEIN 7.1 gm/dL (6.4-8.2)
[2020-12-25 17:22] LABS: ETHYL ALCOHOL < 3.0 mg/dl (<3); TROPONIN I < 0.015 ng/ml (<0.045)
[2020-12-25 21:18] LABS: BILIRUBIN Negative (Negative); BLOOD 1+ (Negative); CLARITY Turbid (Clear); COLOR Dark Yellow (Yellow); GLUCOSE Negative (Negative); KETONE Trace (Negative); LEUKO ESTERASE 3+ (Negative); NITRITE Negative (Negative); UROBILINOGEN 0.2 E.U./dl (0.0-1.0)
[2020-12-25 21:27] LABS: BACTERIA 1+; WBC TNTC wbc/hpf (0-5); YEAST TRACE
[2020-12-25 21:28] LABS: URINE AMPHETAMINES < 1000 (1000ng/ml); URINE BARBITURATES < 200 (200ng/ml); URINE BENZODIAZEPINES < 200 (200ng/ml); URINE CANNABINOIDS (THC) < 50 (50ng/ml); URINE COCAINE < 300 (300ng/ml); URINE METHADONE < 300 (300ng/ml); URINE OPIATES < 300 (300ng/ml); URINE PHENCYCLIDINE < 25 (25ng/ml)
[2020-12-25] MEDS ORDERED: MACROBID100 M1 PO (22:04)
== END 2020-12-25 22:18 | disposition home or self-care (01) ==
LOC: ED 16:21
PROVIDERS: Emergency Medicine
DX: N39.0 Urinary tract infection, site not specified (principal); F03.91 Unspecified dementia, unspecified severity, with behavioral disturbance; I12.9 Hypertensive chronic kidney disease with stage 1 through stage 4 chronic kidney disease, or unspecified chronic kidney disease; N18.30 Chronic kidney disease, stage 3 unspecified; Z88.6 Allergy status to analgesic agent; Z79.899 Other long term (current) drug therapy